=== PATIENT | male | born 1965 | race Caucasian/White ===

== ENCOUNTER 2017-07-07 06:29 | Day surgery (SDC) | payer OTHER ==
[2017-07-07] MEDS ORDERED: DIPHENHYDRAMINE 50 MG INJ IV (06:30)
[2017-07-07] MEDS ORDERED: ONDANSETRON 4 MG INJ IV (06:30)
[2017-07-07] MEDS ORDERED: LABETALOL HCL 20MG INJ IV (06:30)
[2017-07-07] MEDS ORDERED: ATROPINE 1 MG/10 ML SYRINGE IV (06:30)
[2017-07-07] MEDS ORDERED: CIPROFLOXACIN 400 MG in D5W 200 ML IVPB (06:30)
[2017-07-07] MEDS ORDERED: MIDAZOLAM 1 MG/ML 2 ML INJ IV (06:30)
[2017-07-07] MEDS ORDERED: MEPERIDINE 25 MG INJ IV (06:30)
[2017-07-07] MEDS ORDERED: EPHEDrine SULFATE 50 MG/5 ML SYG IV (06:30)
[2017-07-07] MEDS ORDERED: HYDROmorphONE (0.2 MG/ML) 10ML SYG IV ×3 (06:30)
[2017-07-07] MEDS ORDERED: morphine (1 MG/ML) 10ML SYRINGE IV ×3 (06:30)
[2017-07-07] MEDS ORDERED: OXYCODONE/ACETAMINOPHEN (5/325) TAB PO ×2 (06:30)
[2017-07-07] MEDS ORDERED: hydrALAzine 20 MG INJ IV (06:30)
[2017-07-07] MEDS ORDERED: FENTAnyl 50 MCG/ML VIAL IV ×2 (06:30)
[2017-07-07] MEDS ORDERED: FLUMAZENIL 0.5 MG INJ (07:00)
[2017-07-07] MEDS ORDERED: NALOXONE (0.4 MG/ML) INJ (07:00)
[2017-07-07] MEDS ORDERED: SUCCINYLCHOLINE CHLORIDE 100 MG/5 ML SYG IV (07:00)
[2017-07-07] MEDS ORDERED: ATROPINE 1 MG/10 ML SYRINGE (07:00)
[2017-07-07] MEDS ORDERED: GLYCOPYRROLATE 0.4 MG INJ (08:32)
[2017-07-07] MEDS ORDERED: ROCURONIUM 50 MG INJ (08:32)
[2017-07-07] MEDS ORDERED: PROPOFOL 20 ML (08:32)
[2017-07-07] MEDS ORDERED: MIDAZOLAM 1 MG/ML 2 ML INJ (08:32)
[2017-07-07] MEDS ORDERED: LIDOCAINE 2% (SDV) 5 ML INJ (08:32)
[2017-07-07] MEDS ORDERED: FENTAnyl 50 MCG/ML VIAL (08:32)
[2017-07-07] MEDS ORDERED: NEOSTIGMINE 3 MG/3 ML SYRINGE (08:32)
[2017-07-07] MEDS ORDERED: ONDANSETRON 4 MG INJ (08:33)
[2017-07-07] MEDS ORDERED: DEXAMETHASONE 4 MG/ML 1 ML INJ (08:33)
[2017-07-07] MEDS ORDERED: IOHEXOL 300MG/ML 30 ML BTL (09:49)
== END 2017-07-07 13:55 | disposition home or self-care (01) ==
LOC: SDS 06:29
DX: N13.5 Crossing vessel and stricture of ureter without hydronephrosis (principal); N32.0 Bladder-neck obstruction; I10 Essential (primary) hypertension; E78.5 Hyperlipidemia, unspecified
CPT/HCPCS: 52276